=== PATIENT | male | born 1995 | race Caucasian/White ===

== ENCOUNTER 2022-07-01 11:29 | Emergency (ER) | payer SELFPAY ==
[2022-07-01 11:41] VITALS: BP 126/81; PULSE 73; RESP 18; TEMP 36.3; O2SAT 98; BMI 26.6
--- NOTE | 2022-07-01 12:38 | ED_ITS ---
HPI - General Adult General Time Seen by Provider: 12:40 Date Seen: 07/01/22 Chief complaint: Back Injury/Pain Stated complaint: Lower back pain Time Seen by Provider: 07/01/22 12:38 Source: patient and RN notes reviewed Mode of arrival: ambulatory Limitations: no limitations History of Present Illness HPI narrative: Patient is a 27-year-old male ambulatory into the ED with complaint of low back pain. He states it started about 6 days ago. 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 They were not busy when they were doing some cleaning. He went to lift a bucket of water with his right arm and then felt a pull in his back. It initially bothered him, started feeling better but then 2 days ago in the morning head pain getting out of bed. He has not tried anything such as Tylenol or ibuprofen. Two years ago he had a similar event. He does vape but does not have history other tobacco products. He has never had cancer. There has been no trauma. He has had no fevers. No pain down into the legs but with movement does feel a sense of discomfort throughout the low back. No bowel or bladder changes. No numbness or tingling. Related Data Previous Rx's Medication Instructions Recorded cyclobenzaprine 10 mg tablet 10 mg PO TID PRN muscle spasm #21 07/01/22 tabs ketorolac 10 mg tablet 10 mg PO Q6H PRN pain 5 days #20 07/01/22 tabs Allergies Allergy/AdvReac Type Severity Reaction Status Date / Time No Known Drug Allergies Allergy Verified 07/01/22 11:43 Review of Systems Status of ROS: Reports: 6 or more systems reviewed and unremarkable except as noted in History and below Exam Const: Vital Signs, click to edit/add: Vital Signs - 24 hr 07/01/22 11:41 Temperature 97.4 F L Pulse Rate [Right Pulse Oximeter] 73 Respiratory Rate 18 Blood Pressure [Ri ght Upper Arm] 126/81 Pulse Oximetry 98 Oxygen Delivery Me thod Room Air Documenting provider has reviewed patient's vital signs: yes Common normals: no apparent distress, average body habitus, oriented x3, no limitations, healthy appearing, alert and well nourished General appearance: cooperative, comfortable and well kempt Other: Patient was observed ambulating into exam room 7, slightly stooped forward and slower gait. HENMT: Common normals: normocephalic, head/scalp atraumatic and hearing grossly normal bilaterally Head and scalp: normocephalic and atraumatic Eye: Common normals: PERRL, EOMs intact bilaterally, conjunctivae normal and no scleral icterus Conjunctiva: conjunctiva(e) normal Pupil: PERRL Resp: Common normals: normal respiratory effort, no retractions, no use of accessory muscles and clear to auscultation bilaterally Auscultation: clear to auscultation bilaterally Cardio: Common normals: regular rate, regular rhythm, S1 normal heart sound, S2 normal heart sound, no gallops, no clicks and no murmurs Rate: regular rate Rhythm: regular rhythm Heart sounds: S1 normal and S2 normal GI: Common normals: Normal to inspection, nondistended, normoactive bowel sounds present, soft to palpation, non-tender, no hepatosplenomegaly and no masses Palpation: soft and no hepatosplenomegaly Extremity: Other: He has no lower extremity edema, no calf tenderness. Straight leg raising is equivocal and bilateral. He feels somewhat low back pain when I do this but pain does not going to his legs. I cannot obtain DTRs on either side. He has normal light touch sensation. Again observing his gait, is gait was not antalgic but just slow. Motor strength of his lower extremities is 5/5 and symmetric. He does have to be coaxed into completing the motor strength testing but is able to do so without any deficits. Neuro: Common normals: oriented x3 Sensorium/orientation: alert Psych: Appearance: well kempt Course Course Hospital Course: Reviewed with patient that we would obtain lumbar spine x-rays. He did want to have imaging done. Will try a 30 mg IM Toradol for some initial pain management. Reevaluation(s) Reevaluation #1: Reviewed with patient that there is some muscle spasm that is suggested on the x-ray by a loss of the normal curvature. There is nothing acute on lumbar spine x-ray as far as bony pathology, nothing clinically suggesting acute radiculopathy. Have reviewed with him that he really should consider physical therapy followup. Physical therapy referral can be obtained from his clinic. Toradol helped somewhat. Vital Signs Vital signs: Initial Vital Signs Temperature 97.4 F L 07/01/22 11:41 Temperature Source Temporal Artery Scan 07/01/22 11:41 Pulse Rate 73 07/01/22 11:41 Respiratory Rate 18 07/01/22 11:41 Blood Pressure 126/81 07/01/22 11:41 Blood Pressure Mean 96 07/01/22 11:41 Blood Pressure Position Sitting 07/01/22 11:41 Pulse Oximetry 98 07/01/22 11:41 Oxygen Delivery Method 07/01/22 11:41 Vital Signs Temperature 97.4 F L 07/01/22 11:41 Pulse Rate 73 07/01/22 11:41 Respiratory Rate 18 07/01/22 11:41 Blood Pressure 126/81 07/01/22 11:41 Pulse Oximetry 98 07/01/22 11:41 Oxygen Delivery Method 07/01/22 11:41 Temperature 97.4 F L 07/01/22 11:41 Pulse Rate 73 07/01/22 11:41 Respiratory Rate 18 07/01/22 11:41 Blood Pressure 126/81 07/01/22 11:41 Pulse Oximetry 98 07/01/22 11:41 Oxygen Delivery Method 07/01/22 11:41 Medical Decision Making Imaging Data X-ray lumbar spine: Attestation: I have reviewed the pertinent imaging results. Radiologist's impression: Patient: JOHN CHONG Facility:?[facility] Patient ID:?[id number] Site Patient ID:?[id number]. Site :?[id number] Study:?XRay Spine Lumbar 2 VIEW-07/01/2022 1:15:57 PM Ordering Physician:Swapnil Manzanares Final Report: Indication: Low back pain Technique: Two views of the lumbosacral spine were acquired Comparison: None Findings: Straightening is noted which is usually due to muscle spasm or positioning. Alignment is otherwise unremarkable. The height of the vertebral bodies and the caliber of the intervertebral disc spaces is normal. No degenerative changes identified by plain film. No spondylolisthesis. No destructive process of bone. Impression: Straightening which is usually due to muscle spasm or positioning. The examination is otherwise unremarkable. Dictated by Nic Valencia MD @ 07/01/2022 1:52:57 PM (Electronic Signature) Critical Care Time Critical Care Time Critical Care Time: No Discharge Plan Discharge Clinical Impression: Musculoskeletal back pain Patient Disposition: Home, Self-Care Condition: Stable Instructions: Acute Low Back Pain (ED) Additional Instructions: Recommend follow up in clinic with ongoing symptoms, consider physical therapy referral which can be obtained through your clinic. Tylenol 1000 mg 3 times a day baseline, can use the Flexeril and Toradol as prescribed. Can try ice and/or heat for your back. Activity Level: Activity as Tolerated Prescriptions: New cyclobenzaprine 10 mg tablet 10 mg PO TID PRN (Reason: muscle spasm) Qty: 21 0RF ketorolac 10 mg tablet 10 mg PO Q6H PRN (Reason: pain) 5 Days Qty: 20 0RF Follow Up/Referrals: Provider,Not a Local [Primary Care Provider] - Stand Alone Forms: [employer] Info Instructions
--- NOTE | 2022-07-01 12:44 | CRLHL7_ITS ---
For Patients: As a result of the Cures Act, medical imaging exams and procedure reports are released immediately into your electronic medical record. You may view this report before your referring provider. If you have questions, please contact your health care provider. Indication: Low back pain Technique: Two views of the lumbosacral spine were acquired Comparison: None Findings: Straightening is noted which is usually due to muscle spasm or positioning. Alignment is otherwise unremarkable. The height of the vertebral bodies and the caliber of the intervertebral disc spaces is normal. No degenerative changes identified by plain film. No spondylolisthesis. No destructive process of bone. Impression: Straightening which is usually due to muscle spasm or positioning. The examination is otherwise unremarkable. Dictated by Nic Valencia MD @ 07/01/2022 1:52:57 PM (Electronically Signed)
--- OUTSIDE RECORDS SUMMARY | 2022-07-01 13:00 | XMS_ITS | Clinical Summary ---
:1995 Author Organization [facility] [place] [address] Care Team Providers Name Role Phone Pcp, No Primary Care Provider Unavailable Allergies No known active allergies Medications No known medications Active Problems No known active problems Immunizations Name Administration Dates Next Due DTaP 05/04/1998, 03/25/1996, 06/29/1995, 11/29/1994, 06/19/1994 Hepatitis A (Peds) 07/06/2008, 05/07/2007 Hepatitis B (Peds) 07/06/2008, 06/19/2007, 05/07/2007 Meningococcal Vaccine (Menactra) 05/07/2007 Oral Polio Vaccine 01/19/1999, 10/21/1997, 06/29/1995, 11/29/1994, 06/19/1994 Tdap 05/07/2007 Tuberculin (PPD) 11/29/1994 Varicella Vaccine 07/06/2008, 05/07/2007 Social History Tobacco Use Types Packs/Day Years Used Date Never Smoker Smokeless Tobacco: Never Used Comments: e-cig use Alcohol Use Standard Drinks/Week Comments No 0 (1 standard drink = 0.6 oz pure alcoho l) Sex Assigned at Date Recorded Not on file Obstetrics History Last Filed Vital Signs Vital Sign Reading Time Taken Comments Blood Pressure 140/96 12/30/2018 8:41 AM CDT Pulse 72 12/30/2018 8:41 AM CDT Temperature 36.4 ??C (97.6 ??F) 12/30/2018 8:41 AM CDT Respiratory Rate 16 12/30/2018 8:41 AM CDT Oxygen Saturation 99% 12/30/2018 8:41 AM CDT Inhaled Oxygen Concentration - - Weight 66.5 kg (146 lb 9.6 oz) 08/22/2017 2:25 PM [employer] [employer] Height 159.4 cm (5' 2.75) 10/02/2007 4:53 PM [employer] Body Mass Index - - Plan of Treatment Health Maintenance Due Date Last Done Comments COVID-19 vaccine series (#1) 1993 Depression screening for age 12+ 2005 BMI (ht and wt on same day) for age 18+ 2011 Hepatitis C screening for age 18-79 2011 Tetanus booster 05/07/2017 05/07/2007 Influenza for age 9-49 05/04/2022 Tdap Completed 05/07/2007 Results Not on filefrom Last 3 Months Care Teams [employer] Relationship Specialty Start Date End Date Pcp, No PCP - General 07/13/15 .
[2022-07-01] MEDS: KETOROLAC 30 MG/ML inj IM (13:06)
== END 2022-07-01 14:50 | disposition home or self-care (01) ==
PROVIDERS: Emergency Provider Family Medicine
DX: M54.50 Low back pain, unspecified (principal)
CPT/HCPCS: 72100; 96372; 99283; 99284; J1885